=== PATIENT | female | born 1955 | race African-American/Black ===

== ENCOUNTER 2016-12-10 13:38 | Emergency (ER) | payer MEDICARE, MEDICAID ==
[~2016-12-10] VITALS: Ht 170.2 cm; Wt 88.0 kg
[~2016-12-10 13:38] MED LIST: QUET400T PO; TEMA30CA PO
[2016-12-10] MEDS ORDERED: SODIUM CHLORIDE 0.9% 1,000 ML IV ONE (14:01)
[2016-12-10] MEDS ORDERED: ONDANSETRON HCL 4MG/2ML VIAL IV STA (14:01)
[2016-12-10] MEDS ORDERED: KETOROLAC 30MG/ML VIAL IV STA (14:01)
[2016-12-10] MEDS ORDERED: MORPHINE SULFATE 4 MG/ML CPJ (NOT FOR IM USE) IV STA (14:01)
[2016-12-10 14:37] LABS: BASOPHILS % 0.3 % (0.0-2.0); HEMOGLOBIN. 13.4 g/dL (12.0-16.0); LYMPHOCYTES % 31.5 % (20.0-50.0); MEAN CORPUSCULAR HEMOGLOBIN 30.8 pg (28.0-32.0); MEAN CORPUSCULAR HGB CONC 33.5 g/dL (31.0-37.0); MONOCYTES % 7.7 % (2.0-8.0); NEUTROPHILS % 59.5 % (40.0-76.0); PLATELET 175 x1000/uL (130-400); RED BLOOD CELL COUNT 4.34 mill/uL (4.2-5.4); RED CELL DISTRIBUTION WIDTH 14.3 % (11.6-14.6); WHITE BLOOD COUNT 8.6 x1000/uL (4.5-11.0)
[2016-12-10 14:41] LABS: INR 1.1; PROTHROMBIN TIME 11.2 sec
[2016-12-10 14:47] LABS: AMMONIA 42 uMol/L (<32); INDEX HEMOLYSI 1 (1-3)
[2016-12-10 14:49] VITALS: BP 131/77
[2016-12-10 14:50] LABS: ALANINE AMINOTRANSFERASE 10 IU/L (13-61); ALBUMIN 3.5 g/dL (3.4-5.0); ANION GAP 19; CALCIUM 9.1 mg/dL (8.5-10.1); CARBON DIOXIDE 23 mEq/L (21-32); CHLORIDE 106 mEq/L (98-107); CREATINE KINASE 180 IU/L (26-192); ETHANOL BLOOD < 10 mg/dL; INDEX HEMOLYSI 1 (1-3); INDEX ICTERIC 1 (1-4); INDEX LIPEMIC 1 (1-3); LIPASE 155 IU/L (73-393); TROPONIN I < 0.02 ng/mL (0.00-0.04); UREA NITROGEN BLOOD 11 mg/dL (7-21); eGFR > 60 mL/min (>60)
[2016-12-10 14:52] LABS: CARBAMAZEPINE < 0.5 ug/mL (4-12); PHENYTOIN < 0.4 ug/mL (10-20)
[2016-12-10 14:55] LABS: THYROID STIMULATING HORMONE 0.39 uIU/mL (0.36-3.74)
[2016-12-10 14:56] LABS: PHENOBARBITAL < 2.1 ug/mL (15.0-40.0); VALPROIC ACID < 3.0 ug/mL (50-100)
== END 2016-12-10 18:07 | disposition home or self-care (01) ==
LOC: ER 13:38
DX: G93.40 Encephalopathy, unspecified (principal); T42.6X4A Poisoning by other antiepileptic and sedative-hypnotic drugs, undetermined, initial encounter; M54.5 Low back pain; F17.200 Nicotine dependence, unspecified, uncomplicated; W10.9XXA Fall (on) (from) unspecified stairs and steps, initial encounter; Y93.89 Activity, other specified; Y99.8 Other external cause status; Y92.89 Other specified places as the place of occurrence of the external cause
CPT/HCPCS: 36415; 70450; 71010; 72100; 80053; 80156; 80165; 80184; 80185; 82140; 82550; 83690; 84443; 84484; 85025; 85610; 93005; 96360; 96361; 99285; G0482; J7030

== ENCOUNTER 2018-11-06 05:32 | Inpatient (IN) | payer MEDICARE, MEDICAID ==
[~2018-11-06] VITALS: Ht 167.6 cm; Wt 90.3 kg
[2018-11-06] MEDS ORDERED: LACTATED RINGERS 1,000 ML IV SCH (06:40)
[2018-11-06 06:57] LABS: CLARITY URINE CLEAR (CLEAR); COLOR URINE YELLOW (YELLOW); KETONES URINE NEGATIVE (NEGATIVE); LEUKOCYTE ESTERASE URINE 1+ (NEGATIVE); NITRITE URINE NEGATIVE (NEGATIVE); OCCULT BLOOD URINE 1+ (NEGATIVE); PROTEIN URINE NEGATIVE (NEGATIVE); SPECIFIC GRAVITY URINE 1.018 (1.005-1.030)
[2018-11-06] MEDS ORDERED: MORPHINE SULFATE/PF 1MG/ML 10ML AMP ONE (07:11)
[2018-11-06] MEDS ORDERED: BUPIVACAINE/EPINEPH/PF 0.25%/0.0005 10ML ONE (07:11)
[2018-11-06] MEDS ORDERED: BACITRACIN 50,000 UNITS/VIAL ONE (07:12)
[2018-11-06] MEDS ORDERED: NORMAL SALINE 0.9% 10 ML SYR ONE (07:12)
[2018-11-06] MEDS ORDERED: EPINEPHRINE 1:1000 1 MG/ML AMP ONE (07:12)
[2018-11-06] MEDS ORDERED: BUPIVACAINE HCL/PF 0.5% (5MG/ML) 10ML ONE (07:24)
[2018-11-06] MEDS ORDERED: IBUP-2271 PO (07:30)
[2018-11-06] MEDS ORDERED: NEOSTIGMINE METHYLSULFATE 1MG/ML 10 ML VIAL ONE (07:35)
[2018-11-06] MEDS ORDERED: ROCURONIUM BROMIDE 10MG/ML VIAL 5ML IV ONE (07:35)
[2018-11-06] MEDS ORDERED: MIDAZOLAM HCL 2 MG/2 ML VIAL ONE (07:35)
[2018-11-06] MEDS ORDERED: GLYCOPYRROLATE 0.2 MG/ML 2ML VIAL ONE (07:35)
[2018-11-06] MEDS ORDERED: FENTANYL CITRATE/PF 50MCG/ML 2ML VIAL ONE (07:35)
[2018-11-06] MEDS ORDERED: PROPOFOL 200MG/20ML VIAL IV ONE (07:35)
[2018-11-06] MEDS ORDERED: LIDOCAINE HCL/PF 1% 10 MG/ML 5ML VIAL ONE (07:36)
[2018-11-06 09:09] LABS: CLARITY URINE CLEAR (CLEAR); COLOR URINE YELLOW (YELLOW); KETONES URINE NEGATIVE (NEGATIVE); LEUKOCYTE ESTERASE URINE NEGATIVE (NEGATIVE); NITRITE URINE NEGATIVE (NEGATIVE); OCCULT BLOOD URINE 1+ (NEGATIVE); PROTEIN URINE NEGATIVE (NEGATIVE); SPECIFIC GRAVITY URINE 1.012 (1.005-1.030); UROBILINOGEN URINE 0.2 E.U./dL (0.2-1.0)
[2018-11-06] MEDS ORDERED: ONDANSETRON HCL 4MG/2ML INJ IV PRN ×2 (11:15→11:30)
[2018-11-06] MEDS ORDERED: HYDROCODONE/ACETAMINOPHEN 5/325MG TABLET PO PRN (11:15)
[2018-11-06] MEDS ORDERED: KETOROLAC 30MG/ML VIAL IV PRN (11:15)
[2018-11-06] MEDS ORDERED: MEPERIDINE HCL/PF 25MG/ML CPJ IV PRN (11:30)
[2018-11-06] MEDS ORDERED: HYDROMORPHONE HCL/PF 2MG/ML CPJ IV PRN (11:30)
[2018-11-06] MEDS ORDERED: LABETALOL HCL 5MG/ML VIAL 20ML IV PRN (11:30)
[2018-11-06 14:00] VITALS: BP 126/63
[2018-11-06 14:30] VITALS: BP 126/63
[2018-11-06] MEDS ORDERED: CEFAZOLIN 2,000 MG in DEXT 5% WATER 100 ML IV SCH (14:30)
[2018-11-06 16:00] VITALS: BP 109/54
[2018-11-06 20:00] VITALS: BP 124/55
[2018-11-06] MEDS ORDERED: ZOLPIDEM TARTRATE 5MG TABLET PO PRN (21:00)
[2018-11-06] MEDS: CEFAZOLIN 2,000 MG in DEXT 5% WATER 100 ML IV SCH (21:23)
[2018-11-06] MEDS: HYDROCODONE/ACETAMINOPHEN 5/325MG TABLET PO PRN (21:28)
[2018-11-06 23:47] VITALS: BP 137/64
[2018-11-07] MEDS: CEFAZOLIN 2,000 MG in DEXT 5% WATER 100 ML IV SCH (03:43)
[2018-11-07 04:00] VITALS: BP 130/62
[2018-11-07 08:00] VITALS: BP 135/59
[2018-11-07] MEDS: HYDROCODONE/ACETAMINOPHEN 5/325MG TABLET PO PRN (09:08)
[2018-11-07 11:24] VITALS: BP 115/65
[2018-11-07 12:00] VITALS: BP 121/57
[2018-11-07 12:04] VITALS: BP 123/78
== END 2018-11-07 12:55 | disposition home or self-care (01) | DRG 502 ==
LOC: OR 05:32 → 6EST 05:33
PROVIDERS: ADMIT Orthopaedic Surgery; ATTEND Orthopaedic Surgery
PROC: 0LM14ZZ Reattachment of Right Shoulder Tendon, Percutaneous Endoscopic Approach (ICD-10-PCS; principal; 2018-11-06)
PROC: 0RNJ4ZZ Release Right Shoulder Joint, Percutaneous Endoscopic Approach (ICD-10-PCS; 2018-11-06)
PROC: 0PB94ZZ Excision of Right Clavicle, Percutaneous Endoscopic Approach (ICD-10-PCS; 2018-11-06)
PROC: 0LN14ZZ Release Right Shoulder Tendon, Percutaneous Endoscopic Approach (ICD-10-PCS; 2018-11-06)
PROC: 0RHJ44Z Insertion of Internal Fixation Device into Right Shoulder Joint, Percutaneous Endoscopic Approach (ICD-10-PCS; 2018-11-06)
DX: M75.121 Complete rotator cuff tear or rupture of right shoulder, not specified as traumatic (principal); E78.5 Hyperlipidemia, unspecified; F17.210 Nicotine dependence, cigarettes, uncomplicated; G89.29 Other chronic pain; M19.011 Primary osteoarthritis, right shoulder; M25.811 Other specified joint disorders, right shoulder; M65.811 Other synovitis and tenosynovitis, right shoulder; M75.21 Bicipital tendinitis, right shoulder; M94.211 Chondromalacia, right shoulder; S43.439A Superior glenoid labrum lesion of unspecified shoulder, initial encounter; F32.9 Major depressive disorder, single episode, unspecified; N30.90 Cystitis, unspecified without hematuria; Z86.11 Personal history of tuberculosis; M75.51 Bursitis of right shoulder; X58.XXXA Exposure to other specified factors, initial encounter; Y93.89 Activity, other specified; Y92.89 Other specified places as the place of occurrence of the external cause; Y99.8 Other external cause status
CPT/HCPCS: 88304; 88311; 97166; 97535; A4565; C1713; J0171; J0690; J1170; J1885; J2175; J2250; J2274; J2405; J2704; J2710; J3010; J3490; J7060

== ENCOUNTER 2022-09-08 10:31 | Emergency (ER) | payer MEDICARE, MEDICAID ==
[~2022-09-08] VITALS: Ht 167.6 cm; Wt 75.0 kg
[~2022-09-08 10:31] MED LIST changes: +IBUP-2741 PO; -QUET400T PO; -TEMA30CA PO
[2022-09-08] MEDS ORDERED: ACETAMINOPHEN 325MG TABLET PO ONE (10:45)
[2022-09-08 10:50] VITALS: BP 151/83
== END 2022-09-08 13:02 | disposition home or self-care (01) ==
LOC: ER 10:45
DX: S00.31XA Abrasion of nose, initial encounter (principal); S09.8XXA Other specified injuries of head, initial encounter; S80.212A Abrasion, left knee, initial encounter; M17.12 Unilateral primary osteoarthritis, left knee; W01.0XXA Fall on same level from slipping, tripping and stumbling without subsequent striking against object, initial encounter; Y93.89 Activity, other specified; Y92.018 Other place in single-family (private) house as the place of occurrence of the external cause
CPT/HCPCS: 70486; 73564; 82962; 99284